=== PATIENT | male | born 1970 | race Caucasian/White ===

== ENCOUNTER → 2016-11-09 | Day surgery (SDC) | payer BC ==
[2016-10-24 08:45] VITALS: Ht 167.6 cm; Wt 59.1 kg
[~2016-11-09] VITALS: Ht 167.6 cm; Wt 59.1 kg
[~2016-11-09] MED LIST: ATROPINE SULFATE 0.1 MG/ML 5ML SYR IV PRN; BUPIVACAINE/EPINEPHRINE 0.5% MPF 1:200,000 30 ML VIAL ONE; CEFAZOLIN 2000 MG/60 ML D5W IV SCH; DEXAMETHASONE SOD INJ 4 MG/ML VIAL ONE; EpHEDrine SULFATE 50MG/5ML SYR ONE; EpHEDrine SULFATE INJ 50 MG/ML AMP IV PRN; FENTANYL CITRATE INJ 50 MCG/1 ML 2 ML VIAL ONE; HYDR-5688 PO; HYDROCODONE/ACETAMOPHEN 5/325MG TAB PO PRN; HYDROmorphone INJ 1 MG/ML SYR IV PRN; IBUPROFEN 600 MG TAB PO PRN; KETOROLAC TROMETHAMINE 30 MG/ML VIAL IV. PRN; LABETALOL HCL IV 5 MG/ML 20ML IV PRN; LACTATED RINGER'S 1000ML 1,000 ML IV SCH; LIDOCAINE HCL 2% 2 ML VIAL (20MG/ML) ONE; MIDAZOLAM HCL 1 MG/ML 2ML VIAL ONE; NALOXONE HCL 0.4 MG/1 ML VIAL/CARP IV PRN; ONDANSETRON INJ 2 MG/ML 2 ML VIAL IV PRN; ONDANSETRON INJ 2 MG/ML 2 ML VIAL ONE; PROMETHAZINE HCL INJ 12.5 MG in SODIUM CHLORIDE 0.9% 50ML 50 ML IV PRN; PROPOFOL IV EMULSION 10 MG/ML 20 ML VIAL IV ONE; SERT25TA PO; SODIUM CHLORIDE 0.9% 1000ML 1,000 ML IV SCH
--- NOTE | 2016-11-09 10:12 | Discharge Instructions ---
Discharge Instructions Date of Service Nov 09, 2016. Admission Reason for Admission: Left Inguinal Hernia Discharge Discharge Diagnosis / Problem: Left Inguinal Hernia Discharge Goals Goal(s): Decrease discomfort, Improve function Activity Recommendations Activity Limitations: as noted below Lifting Limitations: no more than 10 pounds Exercise/Sports Limitations: until after follow-up appointment May Resume Sexual Activity: after follow-up appointment Shower/Bathe: tomorrow Driving or Machine Use: resume 3 days after discharge . Instructions / Follow-Up Instructions / Follow-Up Please follow-up with Dr. Flores and Jailyn Muhammad PA-C in the office in 1- 2 weeks. Any questions, please call the office at [phone]. Current Hospital Diet Patient's current hospital diet: Discharge Diet Recommended Diet: Regular Diet Pending Studies Studies pending at discharge: no Medical Emergencies . Who to Call and When: Medical Emergencies: If at any time you feel your situation is an emergency, please call 911 immediately. . Non-Emergent Contact Non-Emergency issues call your: Primary Care Provider, Surgeon Call Non-Emergent contact if: temperature is above 101, your pain is not controlled, wound has increased drainage, wound has increased redness . "Provider Documentation" section prepared by Jailyn Muhammad. VTE Core Measure Inpt VTE Proph given/why not?: Unfractionated heparin SQ, SCD's
--- NOTE | 2016-11-09 10:14 | History and Physical ---
History & Physical Date Nov 09, 2016. Chief Complaint left groin bulge/pain History of Present Illness The patient is a 46 year old male with complaints of left groin pain/bulge/ hernia Additional History Hepatic Disease: No Endocrine Disorder: No Kidney Disease: No Hypertension: No Heart Disease: No Bleeding Tendencies: No Infectious Diseases: No Allergies Coded Allergies: NO KNOWN DRUG ALLERGIES (Verified Allergy, Unknown, ., 11/09/16) Home Medications Scheduled Sertraline (Zoloft), 25 MG PO QPM Scheduled PRN Hydrocodone/Acetaminophen 5MG/325MG ([place] 5MG/325MG), 1-2 TABLET PO Q4H PRN for Pain Physical Examination Skin: warm/dry Eyes: EOMI Head: normocephalic Neck: supple Abdomen / GI: normal bowel sounds, + pertinent finding (left groin hernia) Extremities: normal inspection Genitourinary - Male: normal male genitalia Neurologic/Psych: alert, oriented x 3 Diagnosis left inguinal hernia Plan of Treatment discussed options/risks ( bleeding/infection/dvt/pe/injury to spermatic cord/ infection of mesh requiring explant etc...) answered questions will proceed with open inguinal hernia repair with mesh
--- NOTE | 2016-11-09 10:15 | [facility] Operative Report ---
Operative Report Operative Date Nov 09, 2016. Pre-Operative Diagnosis left inguinal hernia Post-Operative Diagnosis left inguinal hernia Procedure(s) Performed open left inguinal hernia repair with mesh Tumor Registrar Surgeon(s) Sabina,pac Findings left inguinal hernia Anesthesia general Complication(s) None Disposition Recovery Room / PACU I attest to the content of the Intraoperative Record and any orders documented therein. Any exceptions are noted below.
--- NOTE | 2016-11-09 11:25 | Medical Student: [facility] ---
Immediate Operative Summary Operative Date Nov 09, 2016. Pre-Operative Diagnosis left inguinal hernia Post-Operative Diagnosis same as above Procedure(s) Performed open left inguinal hernia repair w mesh Surgeon Dr. Flores Sales Team Recruiter Surgeon(s) Jailyn Muhammad PA-C Estimated Blood Loss 5cc Findings left inguinal hernia Specimens A. left inguinal hernia sac Anesthesia general Complication(s) None Disposition Recovery Room / PACU
[2016-11-09 12:04] VITALS: TEMP 36.6
[2016-11-09 12:26] VITALS: BP 112/73; PULSE 62; O2SAT 100
--- NOTE | 2016-11-09 12:26 | Anesthesia Progress Nt - [facility] ---
Anesthesia Post Op Note Date & Time Nov 09, 2016 at 12:26 Vital Signs Pain Intensity: 0 Vital Signs Past 12 Hours Date Time Temp Pulse Resp B/P Pulse Ox O2 Delivery O2 Flow Rate FiO2 11/09/16 12:04 36.6 59 18 110/74 100 Room Air 11/09/16 11:51 36.9 11/09/16 11:51 103/66 11/09/16 11:50 64 20 11/09/16 11:50 64 20 100 11/09/16 11:46 103/67 11/09/16 11:45 73 16 97 11/09/16 11:45 72 16 11/09/16 11:41 101/73 11/09/16 11:40 64 16 100 11/09/16 11:40 64 16 11/09/16 11:36 111/68 11/09/16 11:35 70 17 100 11/09/16 11:35 72 17 11/09/16 11:31 122/78 11/09/16 11:30 82 20 11/09/16 11:30 20 11/09/16 11:26 113/69 11/09/16 11:25 79 20 11/09/16 11:25 80 20 115/71 100 11/09/16 11:24 37.4 80 18 115/71 100 Diffusion Mask 8 11/09/16 09:04 36.3 81 16 95/67 97 Room Air Notes Mental Status: alert / awake / arousable, participated in evaluation Pt Amnestic to Procedure: Yes Nausea / Vomiting: adequately controlled Pain: adequately controlled Airway Patency, RR, SpO2: stable & adequate BP & HR: stable & adequate Hydration State: stable & adequate Anesthetic Complications: no major complications apparent
--- NOTE | 2016-11-09 13:32 | OPERATIVE REPORT ---
DATE OF OPERATION: 11/09/2016 PREOPERATIVE DIAGNOSIS: Left inguinal hernia. POSTOPERATIVE DIAGNOSIS: Direct and indirect left inguinal hernia. PROCEDURE: Open left inguinal hernia repair with mesh. SURGEON: Dr. Flores. RCIS: Jailyn Muhammad PA-C. ESTIMATED BLOOD LOSS: Approximately 5 mL COMPLICATIONS: No immediate. ANESTHESIA: General. The patient tolerated the procedure well. OPERATIVE NOTE: After informed consent was obtained, the patient was taken to the operating suite and placed in supine position. After successful placement of laryngeal mask airway, the left groin was shaved and sterilely prepped and draped in usual fashion. A left inguinal incision was made with a 15 blade scalpel and carried down through the soft tissue using electrocautery. The external oblique aponeurosis was skeletonized and incised with a fresh blade. It was extended distally through the external ring as well as for several centimeters proximally. I then used blunt finger dissection to dissect away the cord and cord structures from surrounding structures. We used a Jg clamp to elevate the cord and cord structures, and I used blunt finger to undermine it and gently pick it off the pubic bone. We then placed a Castile drain around it. As soon as we did this, we immediately noted a small direct inguinal hernia. It was easily reducible. We then inspected the cord and cord structures using blunt dissection, small amounts of cautery. We did find an indirect hernia sac. We were able to slowly tease it away from the cord and cord structures down to its neck. We clamped its neck with a hemostat and incised it with a Metzenbaum scissors. We then tied it off using 3-0 silk and it easily dunked back into the abdominal cavity. We then irrigated the wound. A piece of keyhole polypropylene mesh was placed as an onlay, secured distally to Gonzalo's ligament, laterally along the shelving portion of Poupart's ligament, and medially along the rectus musculature. The "arms" of the mesh were wrapped around behind the cord and cord structures and again secured to underlying muscle. All the sutures for the mesh were 0 Nurolon in simple interrupted fashion. The mesh laid nice and tension free and did not impinge upon the cord and cord structures. We did inject some Marcaine around the edges of the mesh for postoperative analgesia. A final irrigation was performed. There was adequate hemostasis. We then closed the external oblique aponeurosis with 2-0 Vicryl in a running fashion. Soft tissue was irrigated and closed using 3-0 Vicryl and skin was closed using 4-0 Monocryl. Some additional Marcaine was injected around the incision and Dermabond glue used as a dressing. The patient was awakened, extubated, and transferred to recovery in stable condition. I attest to the content of the Intraoperative Record and any orders documented therein. Any exceptio ns are noted below.
== END | disposition home or self-care (01) ==
LOC: X.SURG 08:51
PROVIDERS: ATTEND Surgery
DX: K40.90 Unilateral inguinal hernia, without obstruction or gangrene, not specified as recurrent (principal)

== ENCOUNTER → 2017-10-09 | Outpatient (CLI) | payer OTHER ==
[~2017-10-09] MED LIST changes: -ATROPINE SULFATE 0.1 MG/ML 5ML SYR IV PRN; -BUPIVACAINE/EPINEPHRINE 0.5% MPF 1:200,000 30 ML VIAL ONE; -CEFAZOLIN 2000 MG/60 ML D5W IV SCH; -DEXAMETHASONE SOD INJ 4 MG/ML VIAL ONE; -EpHEDrine SULFATE 50MG/5ML SYR ONE; -EpHEDrine SULFATE INJ 50 MG/ML AMP IV PRN; -FENTANYL CITRATE INJ 50 MCG/1 ML 2 ML VIAL ONE; -HYDR-5688 PO; -HYDROCODONE/ACETAMOPHEN 5/325MG TAB PO PRN; -HYDROmorphone INJ 1 MG/ML SYR IV PRN; -IBUPROFEN 600 MG TAB PO PRN; -KETOROLAC TROMETHAMINE 30 MG/ML VIAL IV. PRN; -LABETALOL HCL IV 5 MG/ML 20ML IV PRN; -LACTATED RINGER'S 1000ML 1,000 ML IV SCH; -LIDOCAINE HCL 2% 2 ML VIAL (20MG/ML) ONE; -MIDAZOLAM HCL 1 MG/ML 2ML VIAL ONE; -NALOXONE HCL 0.4 MG/1 ML VIAL/CARP IV PRN; -ONDANSETRON INJ 2 MG/ML 2 ML VIAL IV PRN; -ONDANSETRON INJ 2 MG/ML 2 ML VIAL ONE; -PROMETHAZINE HCL INJ 12.5 MG in SODIUM CHLORIDE 0.9% 50ML 50 ML IV PRN; -PROPOFOL IV EMULSION 10 MG/ML 20 ML VIAL IV ONE; -SODIUM CHLORIDE 0.9% 1000ML 1,000 ML IV SCH
== END | disposition home or self-care (01) ==
LOC: C.LAB1850 09:28
PROVIDERS: ATTEND Urology
DX: R39.9 Unspecified symptoms and signs involving the genitourinary system (principal)